=== PATIENT | male | born 1995 | race Caucasian/White ===

== ENCOUNTER 2016-12-08 03:22 | Emergency (ER) | payer OTHER ==
--- NOTE | 2016-12-08 05:10 | ED ORDER SUMMARY ---
..... Patient: KARINA OLIVER OrderSheet [facility] VisitID: [id number] [address] [place] [address] 21y, M Registration Date/Time: 12/08/2016 ORDER SHEET Weight: 65.7 kg (stated) Allergies: No Known Drug Allergy GENERAL ORDERS: Rapid Influenza Screen (Nasal Pharyngeal) (NURSE EXAMINER) Urgent (04:17 12/08/2016 Surya MURPHY) (Ack 4:25 LMuller) MEDICATION ORDERS: IV FLUIDS: ORDER SHEET NOTES: [Electronically signed by Antonia Frey R.N. (05:16 12/08/2016)] [Electronically signed by Jesus Do MD (05:12/08/2016)] [Electronically locked/signed by Antonia Frey R.N. (05:16 12/08/2016)]
--- NOTE | 2016-12-08 05:10 | ED CLINICAL REPORT ---
Clinical Report - Physicians/Mid Levels [facility] [address] [place] [address] 12/08/2016 3:24 Patient: KARINA OLIVER Time Seen: 03:43. Arrived- By private vehicle. Historian- patient. HISTORY OF PRESENT ILLNESS Chief Complaint: COUGH, FEVER and CHILLS. This started last night and is still present. It was abrupt in onset. The patient has had a cough, a sore throat, nasal congestion, chills and a nasal discharge. (he says that he burned the roof of his mouth on some hot food last night and that all of his symptoms started shortly after.). REVIEW OF SYSTEMS The patient has had nasal congestion, a runny nose, a sore throat, a subjective fever and chills. He has had a cough and difficulty breathing and experienced sweats. No calf pain, chest pain, palpitations, abdominal pain or constipation. No diarrhea, nausea, vomiting or urinary problems. All systems otherwise negative, except as recorded above. SOCIAL HISTORY Smoker- current status unknown (vapes). Occasional alcohol use. No drug use. FAMILY HISTORY Denies family medical history. ADDITIONAL NOTES The nursing notes have been reviewed. PHYSICAL EXAM Vital Signs: 12/08/2016 03:27 BP: 131/83. HR: 90. RR: 18. O2 saturation: 100%. Temp: 97.8 F. Have been reviewed. Appearance: Alert. No acute distress. Eyes: Pupils equal, round and reactive to light. ENT: Ears normal. Nose normal. Pharynx normal. Uvula midline. No pharyngeal erythema. Neck: Normal inspection. Neck supple. No meningeal signs. CVS: Normal heart rate and rhythm. Heart sounds normal. Respiratory: No respiratory distress. Breath sounds normal. Abdomen: Soft and nontender. No organomegaly. Back: Normal inspection. Skin: Skin warm and dry. Normal skin color. Normal skin turgor. Extremities: Extremities exhibit normal ROM. No calf tenderness. No lower extremity edema. PROGRESS AND PROCEDURES Course of Care: Patient is stable. Patient/family counseled. Old medical records reviewed. Disposition: Discharged. Condition: stable. CLINICAL IMPRESSION Acute upper respiratory infection. INSTRUCTIONS Drink plenty of fluids. Warnings: Further evaluation is necessary. GENERAL WARNINGS: Return or contact your physician immediately if your condition worsens or changes unexpectedly, if not improving as expected, or if other problems arise. OTC Medications: Acetaminophen (available over the counter): take according to label instructions. Motrin (available over the counter): take according to label instructions. Follow-up: Follow up with your doctor in seven days if not better. Understanding of the discharge instructions verbalized by patient. (Electronically signed by Jesus Do MD 12/08/2016 5:21)
--- NOTE | 2016-12-08 05:10 | ED ORDER SUMMARY ---
..... 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 (05:16 12/08/2016)] [Electronically signed by Jesus Do MD (05:12/08/2016)] [Electronically locked/signed by Antonia Frey R.N. (05:16 12/08/2016)]
--- NOTE | 2016-12-08 05:10 | ED CLINICAL REPORT ---
Clinical Report - Physicians/Mid Levels [facility] [address] [place] [place] [address] 12/08/2016 3:24 Patient: KARINA OLIVER Time Seen: 03:43. Arrived- By private vehicle. Historian- patient. HISTORY OF PRESENT ILLNESS Chief Complaint: COUGH, FEVER and CHILLS. This started last night and is still present. It was abrupt in onset. The patient has had a cough, a sore throat, nasal congestion, chills and a nasal discharge. (he says that he burned the roof of his mouth on some hot food last night and that all of his symptoms started shortly after.). REVIEW OF SYSTEMS The patient has had nasal congestion, a runny nose, a sore throat, a subjective fever and chills. He has had a cough and difficulty breathing and experienced sweats. No calf pain, chest pain, palpitations, abdominal pain or constipation. No diarrhea, nausea, vomiting or urinary problems. All systems otherwise negative, except as recorded above. SOCIAL HISTORY Smoker- current status unknown (vapes). Occasional alcohol use. No drug use. FAMILY HISTORY Denies family medical history. ADDITIONAL NOTES The nursing notes have been reviewed. PHYSICAL EXAM Vital Signs: 12/08/2016 03:27 BP: 131/83. HR: 90. RR: 18. O2 saturation: 100%. Temp: 97.8 F. Have been reviewed. Appearance: Alert. No acute distress. Eyes: Pupils equal, round and reactive to light. ENT: Ears normal. Nose normal. Pharynx normal. Uvula midline. No pharyngeal erythema. Neck: Normal inspection. Neck supple. No meningeal signs. CVS: Normal heart rate and rhythm. Heart sounds normal. Respiratory: No respiratory distress. Breath sounds normal. Abdomen: Soft and nontender. No organomegaly. Back: Normal inspection. Skin: Skin warm and dry. Normal skin color. Normal skin turgor. Extremities: Extremities exhibit normal ROM. No calf tenderness. No lower extremity edema. PROGRESS AND PROCEDURES Course of Care: Patient is stable. Patient/family counseled. Old medical records reviewed. Disposition: Discharged. Condition: stable. CLINICAL IMPRESSION Acute upper respiratory infection. INSTRUCTIONS Drink plenty of fluids. Warnings: Further evaluation is necessary. GENERAL WARNINGS: Return or contact your physician immediately if your condition worsens or changes unexpectedly, if not improving as expected, or if other problems arise. OTC Medications: Acetaminophen (available over the counter): take according to label instructions. Motrin (available over the counter): take according to label instructions. Follow-up: Follow up with your doctor in seven days if not better. Understanding of the discharge instructions verbalized by patient. (Electronically signed by Jesus Do MD 12/08/2016 5:21)
--- NOTE | 2016-12-08 05:10 | ED NURSING NOTES ---
Clinical Report - Nurses [facility] [address] [place] [address] 12/08/2016 3:24 Patient: KARINA OLIVER TRIAGE Triage time 03:27. Acuity: LEVEL 4. Chief Complaint: FEVER, CHILLS, HEADACHE, DYSPNEA and COUGH. Alert. No acute distress. --03:33 Antonia Frey R.N. 03:27 12/08/16. BP: 131/83. HR: 90. RR: 18. O2 saturation: 100% on room air. Temp: 97.8 F (oral). --03:33 Antonia Frey R.N. Weight: 65.7 kg stated. Height/Length: 71 inches Per Patient. BMI: 20.2. --03:29 Antonia Frey R.N. Medications Methylphenidate HCl ER Oral (Tablet Extended Release 36 mg) 1 tablet, daily. --03:31 Antonia Frey R.N. Divalproex Sodium Oral (Tablet Delayed Release 250 mg) 1 tablet, daily. --03:31 Antonia Frey R.N. Allergies No Known Drug Allergy. --03:30 Antonia Frey R.N. History Arrived by private vehicle. Historian: patient. Accompanied by family. Primary physician ([facility]). ( pt states he burnt the roof of his mouth on food today and he thinks that's what started his illness.). 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 PAST MEDICAL HX: Immunizations: up-to-date. SOCIAL HX: Smoker- current status unknown (vapes). Occasional alcohol use. No drug use. NUTRITIONAL RISK ASSESSMENT: The nutritional risk assessment revealed no deficiencies. FUNCTIONAL ASSESSMENT: Functional assessment: no impairments noted. --03:33 Antonia Frey R.N. PROBLEMS: ADHD - Attention Deficit Hyperactivity Disorder. --03:32 Antonia Frey R.N. ADDITIONAL SURGERIES: no known surgeries. Interventions ID band on patient. To treatment room. --03:33 Antonia Frey R.N. PHYSICAL ASSESSMENT Ambulatory to room. GENERAL / NEURO / PSYCH: Alert. Oriented X 4. Appears in no acute distress. HEENT: Mucous membranes are pink. RESPIRATORY: Respirations not labored. CVS: Capillary refill less than 2 seconds. SKIN: Skin is warm and dry. --03:33 Antonia Frey R.N. NURSING PROGRESS NOTES Head of bed elevated. Two patient identifiers checked. Call light placed in reach. Side rails up x 1. Bed placed in lowest position. Brakes of bed on. --03:33 Antonia Frey R.N. Patient ready for evaluation- chart flagged. --03:33 Antonia Frey R.N. 04:20. Patient ID band checked for patient name and birthdate: patient confirmed. Flu swab obtained by RN via nasal pharyngeal swab. Labeled in the presence of the patient and sent to lab. --04:39 Antonia Frey R.N. DISPOSITION / DISCHARGE Condition at departure: stable. No learning barriers present. Discharge instructions provided and reviewed with the patient. Patient verbalized understanding. Written instructions provided in [place]. The patient was discharged home and accompanied by family. He left the Emergency Department ambulatory and via private vehicle. Family member driving. --05:16 Antonia Frey R.N. 05:15 12/08/16. BP: deferred. HR: deferred. RR: 15 (regular and unlabored). O2 saturation: deferred. Temp: deferred. Munoz-Brown pain scale: 4/10. --05:16 Antonia Frey R.N. Locked/Released at 12/08/2016 5:16 by Antonia Frey R.N.
--- NOTE | 2016-12-08 05:10 | ED NURSING NOTES ---
Clinical Report - Nurses [facility] [address] [place] [address] 12/08/2016 3:24 Patient: KARINA OLIVER TRIAGE Triage time 03:27. Acuity: LEVEL 4. Chief Complaint: FEVER, CHILLS, HEADACHE, DYSPNEA and COUGH. Alert. No acute distress. --03:33 Antonia Frey R.N. 03:27 12/08/16. BP: 131/83. HR: 90. RR: 18. O2 saturation: 100% on room air. Temp: 97.8 F (oral). --03:33 Antonia Frey R.N. Weight: 65.7 kg stated. Height/Length: 71 inches Per Patient. BMI: 20.2. --03:29 Antonia Frey R.N. Medications Methylphenidate HCl ER Oral (Tablet Extended Release 36 mg) 1 tablet, daily. --03:31 Antonia Frey R.N. Divalproex Sodium Oral (Tablet Delayed Release 250 mg) 1 tablet, daily. --03:31 Antonia Frey R.N. Allergies No Known Drug Allergy. --03:30 Antonia Frey R.N. History Arrived by private vehicle. Historian: patient. Accompanied by family. Primary physician ([facility]). ( pt states he burnt the roof of his mouth on food today and he thinks that's what started his illness.). 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 PAST MEDICAL HX: Immunizations: up-to-date. SOCIAL HX: Smoker- current status unknown (vapes). Occasional alcohol use. No drug use. NUTRITIONAL RISK ASSESSMENT: The nutritional risk assessment revealed no deficiencies. FUNCTIONAL ASSESSMENT: Functional assessment: no impairments noted. --03:33 Antonia Frey R.N. PROBLEMS: ADHD - Attention Deficit Hyperactivity Disorder. --03:32 Antonia Frey R.N. ADDITIONAL SURGERIES: no known surgeries. Interventions ID band on patient. To treatment room. --03:33 Antonia Frey R.N. PHYSICAL ASSESSMENT Ambulatory to room. GENERAL / NEURO / PSYCH: Alert. Oriented X 4. Appears in no acute distress. HEENT: Mucous membranes are pink. RESPIRATORY: Respirations not labored. CVS: Capillary refill less than 2 seconds. SKIN: Skin is warm and dry. --03:33 Antonia Frey R.N. NURSING PROGRESS NOTES Head of bed elevated. Two patient identifiers checked. Call light placed in reach. Side rails up x 1. Bed placed in lowest position. Brakes of bed on. --03:33 Antonia Frey R.N. Patient ready for evaluation- chart flagged. --03:33 Antonia Frey R.N. 04:20. Patient ID band checked for patient name and birthdate: patient confirmed. Flu swab obtained by RN via nasal pharyngeal swab. Labeled in the presence of the patient and sent to lab. --04:39 Antonia Frey R.N. DISPOSITION / DISCHARGE Condition at departure: stable. No learning barriers present. Discharge instructions provided and reviewed with the patient. Patient verbalized understanding. Written instructions provided in [place]. The patient was discharged home and accompanied by family. He left the Emergency Department ambulatory and via private vehicle. Family member driving. --05:16 Antonia Frey R.N. 05:15 12/08/16. BP: deferred. HR: deferred. RR: 15 (regular and unlabored). O2 saturation: deferred. Temp: deferred. Munoz-Brown pain scale: 4/10. --05:16 Antonia Frey R.N. Locked/Released at 12/08/2016 5:16 by Antonia Frey R.N.
--- NOTE | 2016-12-08 05:21 | ED MAR SUMMARY ---
..... Medication Administration Record [facility] [address], [place] [id number] Patient: KARINA OLIVER Visit ID: [id number] 21y, M Weight: 65.7 kg Height/Length: 71 in BMI: 20.2 ALLERGIES: No Known Drug Allergy
--- NOTE | 2016-12-08 05:21 | ED MED RECONCILIATION SUMMARY ---
Patient: KARINA OLIVER Medication Reconciliation Report [facility] VisitID: [id number] [place] [address] 21y, M Registration Date/Time: 12/08/2016 Weight: 65.7 kg Height/Length: 71 in. BMI: 20.2 ALLERGIES: No Known Drug Allergy The patient's Home Medications are listed below: THE FOLLOWING MEDICATIONS NEED TO BE RECONCILED: Divalproex Sodium Oral (250 mg) 1 tablet, daily Methylphenidate HCl ER Oral (36 mg) 1 tablet, daily The source(s) of the original Home Medication information: Not obtained. The following Medications were given to the patient in the Emergency Department: None. The following Medications were prescribed to the patient: Acetaminophen (available over the counter): take according to label instructions. -- Jesus Do MD Motrin (available over the counter): take according to label instructions. -- Jesus Do MD
--- NOTE | 2016-12-08 05:21 | ED MAR SUMMARY ---
..... Medication Administration Record [facility] [address], [place] [id number] Patient: KARINA OLIVER Visit ID: [id number] 21y, M Weight: 65.7 kg Height/Length: 71 in BMI: 20.2 ALLERGIES: No Known Drug Allergy
--- NOTE | 2016-12-08 05:21 | ED MED RECONCILIATION SUMMARY ---
Patient: KARINA OLIVER Medication Reconciliation Report [facility] VisitID: [id number] [place] [address] 21y, M Registration Date/Time: 12/08/2016 Weight: 65.7 kg Height/Length: 71 in. BMI: 20.2 ALLERGIES: No Known Drug Allergy The patient's Home Medications are listed below: THE FOLLOWING MEDICATIONS NEED TO BE RECONCILED: Divalproex Sodium Oral (250 mg) 1 tablet, daily Methylphenidate HCl ER Oral (36 mg) 1 tablet, daily The source(s) of the original Home Medication information: Not obtained. The following Medications were given to the patient in the Emergency Department: None. The following Medications were prescribed to the patient: Acetaminophen (available over the counter): take according to label instructions. -- Jesus Do MD Motrin (available over the counter): take according to label instructions. -- Jesus Do MD
--- NOTE | 2016-12-08 05:21 | ED DISCHARGE INSTRUCTIONS ---
Patient: KARINA OLIVER General Instructions [facility] VisitID: [id number] [place] [address] 21y, M Registration Date/Time: 12/08/2016 Acute upper respiratory infection. INSTRUCTIONS Drink plenty of fluids. Warnings: Further evaluation is necessary. GENERAL WARNINGS: Return or contact your physician immediately if your condition worsens or changes unexpectedly, if not improving as expected, or if other problems arise. OTC Medications: Acetaminophen (available over the counter): take according to label instructions. Motrin (available over the counter): take according to label instructions. Follow-up: Follow up with your doctor in seven days if not better. Understanding of the discharge instructions verbalized by patient. ADDITIONAL INFORMATION Viral Respiratory Illness [Adult] You have an Upper Respiratory Illness (URI) caused by a virus. This illness is contagious during the first few days. It is spread through the air by coughing and sneezing or by direct contact (touching the sick person and then touching your own eyes, nose or mouth). Most viral illnesses go away within 7-10 days with rest and simple home remedies. Sometimes, the illness may last for several weeks. Antibiotics will not kill a virus and are generally not prescribed for this condition. Home Care: 1) If symptoms are severe, rest at home for the first 2-3 days. When you resume activity, don't let yourself get too tired. 2) Avoid being exposed to cigarette smoke (yours or others). 3) Tylenol (acetaminophen) or ibuprofen (Advil, Motrin) will help fever, muscle aching and headache. (Persons under 18 with fever should not take aspirin since this may cause liver damage.) 4) Your appetite may be poor, so a light diet is fine. Avoid dehydration by drinking 6-8 glasses of fluids per day (water, soft drinks, juices, tea, soup). Extra fluids will help loosen secretions in the nose and lungs. 5) Kpdp-zsj-bvkymag cold medicines will not shorten the length of time youre sick, but they may be helpful for the following symptoms: cough (Robitussin DM); sore throat (Chloraseptic lozenges or spray); nasal and sinus congestion (Actifed, Sudafed, Chlortrimeton). Follow Up with your doctor or as advised if you dont improve over the next week. Get Prompt Medical Attention if any of the following occur: -- Cough with lots of colored sputum (mucus) or blood in your sputum -- Chest pain, shortness of breath, wheezing or have trouble breathing -- Severe headache; face, neck or ear pain -- Fever over 100.4 F (38.0 C) for more than three days -- You cant swallow due to throat pain Acetaminophen Oral tablet What is this medicine? ACETAMINOPHEN (a set a HEIKE meche fen) is a pain reliever. It is used to treat mild pain and fever. How should I use this medicine? Take this medicine by mouth with a glass of water. Follow the directions on the package or prescription label. Take your medicine at regular intervals. Do not take your medicine more often than directed. Talk to your seismograph operator regarding the use of this medicine in children. While this drug may be prescribed for children as young as 6 years of age for selected conditions, precautions do apply. What side effects may I notice from receiving this medicine? Side effects that you should report to your doctor or health personal care home administrator as soon as possible: allergic reactions like skin rash, itching or hives, swelling of the face, lips, or tongue breathing problems fever or sore throat redness, blistering, peeling or loosening of the skin, including inside the mouth trouble passing urine or change in the amount of urine unusual bleeding or bruising unusually weak or tired yellowing of the eyes or skin Side effects that usually do not require medical attention (report to your doctor or health personal care home administrator if they continue or are bothersome): headache nausea, stomach upset What may interact with this medicine? alcohol imatinib isoniazid other medicines with acetaminophen What if I miss a dose? If you miss a dose, take it as soon as you can. If it is almost time for your next dose, take only that dose. Do not take double or extra doses. Where should I keep my medicine? Keep out of reach of children. Store at room temperature between 20 and 25 degrees C (68 and 77 degrees F). Protect from moisture and heat. Throw away any unused medicine after the expiration date. What should I tell my health care provider before I take this medicine? They need to know if you have any of these conditions: if you frequently drink alcohol containing drinks liver disease an unusual or allergic reaction to acetaminophen, other medicines, foods, dyes or preservatives or trying to get breast-feeding What should I watch for while using this medicine? Tell your doctor or health personal care home administrator if the pain lasts more than 10 days (5 days for children), if it gets worse, or if there is a new or different kind of pain. Also, check with your doctor if a fever lasts for more than 3 days. Do not take other medicines that contain acetaminophen with this medicine. Always read labels carefully. If you have questions, ask your doctor or pharmacist. If you take too much acetaminophen get medical help right away. Too much acetaminophen can be very dangerous and cause liver damage. Even if you do not have symptoms, it is important to get help right away. Ibuprofen Oral tablet What is this medicine? IBUPROFEN (eye BYOO proe fen) is a non-steroidal anti-inflammatory drug (NSAID). It is used for dental pain, fever, headaches or migraines, osteoarthritis, rheumatoid arthritis, or painful monthly periods. It can also relieve minor aches and pains caused by a cold, flu, or sore throat. How should I use this medicine? Take this medicine by mouth with a glass of water. Follow the directions on the prescription label. Take this medicine with food if your stomach gets upset. Try to not lie down for at least 10 minutes after you take the medicine. Take your medicine at regular intervals. Do not take your medicine more often than directed. A special MedGuide will be given to you by the pharmacist with each prescription and refill. Be sure to read this information carefully each time. Talk to your seismograph operator regarding the use of this medicine in children. Special care may be needed. What side effects may I notice from receiving this medicine? Side effects that you should report to your doctor or health personal care home administrator as soon as possible: allergic reactions like skin rash, itching or hives, swelling of the face, lips, or tongue black or bloody stools, blood in the urine or in vomit breathing problems changes in vision chest pain general ill feeling or flu-like symptoms nausea or vomiting redness, blistering, peeling or loosening of the skin, including inside the mouth slurred speech or weakness on one side of the body stomach pain unexplained weight gain or swelling unusually weak or tired yellowing of eyes or skin Side effects that usually do not require medical attention (report to your doctor or health personal care home administrator if they continue or are bothersome): constipation or diarrhea dizziness gas or heartburn stomach upset What may interact with this medicine? Do not take this medicine with any of the following medications: cidofovir ketorolac methotrexate pemetrexed This medicine may also interact with the following medications: alcohol aspirin diuretics lithium other drugs for inflammation like prednisone warfarin What if I miss a dose? If you miss a dose, take it as soon as you can. If it is almost time for your next dose, take only that dose. Do not take double or extra doses. Where should I keep my medicine? Keep out of the reach of children. Store at room temperature between 15 and 30 degrees C (59 and 86 degrees F). Keep container tightly closed. Throw away any unused medicine after the expiration date. What should I tell my health care provider before I take this medicine? They need to know if you have any of these conditions: asthma cigarette smoker drink more than 3 alcohol containing drinks a day heart disease or circulation problems such as heart failure or leg edema (fluid retention) high blood pressure kidney disease liver disease stomach bleeding or ulcers an unusual or allergic reaction to ibuprofen, aspirin, other NSAIDS, other medicines, foods, dyes, or preservatives or trying to get breast-feeding What should I watch for while using this medicine? Tell your doctor or healthcare professional if your symptoms do not start to get better or if they get worse. This medicine does not prevent heart attack or stroke. In fact, this medicine may increase the chance of a heart attack or stroke. The chance may increase with longer use of this medicine and in people who have heart disease. If you take aspirin to prevent heart attack or stroke, talk with your doctor or health personal care home administrator. Do not take other medicines that contain aspirin, ibuprofen, or naproxen with this medicine. Side effects such as stomach upset, nausea, or ulcers may be more likely to occur. Many medicines available without a prescription should not be taken with this medicine. This medicine can cause ulcers and bleeding in the stomach and intestines at any time during treatment. Ulcers and bleeding can happen without warning symptoms and can cause . To reduce your risk, do not smoke cigarettes or drink alcohol while you are taking this medicine. You may get drowsy or dizzy. Do not drive, use machinery, or do anything that needs mental alertness until you know how this medicine affects you. Do not stand or sit up quickly, especially if you are an older patient. This reduces the risk of dizzy or fainting spells. This medicine can cause you to bleed more easily. Try to avoid damage to your teeth and gums when you brush or floss your teeth. You have been given the following additional information: Uri, Viral, No Abx (Adult) Acetaminophen Oral tablet Ibuprofen Oral tablet (Electronically signed by Jesus Do MD 12/08/2016 5:21)
== END 2016-12-08 05:16 | disposition home or self-care (01) ==
LOC: ED SRH 03:22
DX: J06.9 Acute upper respiratory infection, unspecified (principal)
CPT/HCPCS: 91400

== ENCOUNTER 2017-02-09 11:16 | Emergency (ER) | payer OTHER ==
--- NOTE | 2017-02-09 16:27 | ED NURSING NOTES ---
Clinical Report - Nurses [facility] [address] [place] [address] 02/09/2017 11:17 Patient: KARINA OLIVER TRIAGE Acuity: LEVEL 2. Chief Complaint: SUICIDAL THOUGHTS and THOUGHTS OF HARMING SELF. Alert. No acute distress. AMEE COMA SCORE: [place] Coma Scale: 15- eyes open spontaneously (4); best verbal response- oriented x 4 (5); best motor response- obeys commands (6). --11:17 Fatmata Sheppard R.N. 11:09 02/09/17. BP: 142/89. HR: 97. RR: 16. O2 saturation: 100%. Temp: 98.2 F (oral). Pain level now: 0/10. --11:17 Fatmata Sheppard R.N. Weight: 65.7 kg stated. Height/Length: 71 inches Per Patient. BMI: 20.2. --11:12 Fatmata Sheppard R.N. Medications QUEtiapine Fumarate Oral 100 mg, at bedtime. --11:38 Fatmata Sheppard R.N. Divalproex Sodium ER Oral 250 mg , 1 tab am, 1 tab 4 pm, 2 tabs at 7pm. --11:40 Fatmata Sheppard R.N. Concerta Oral 36 mg, 2 tabs every morning . --11:42 Fatmata Sheppard R.N. Medication/allergy information source: the patient. --11:17 Fatmata Sheppard R.N. Allergies No Known Drug Allergy. --11:14 Fatmata Sheppard R.N. History Historian: patient. Arrived in police custody and unaccompanied. Primary physician (unknown). Onset: just prior to arrival. ( Pt reports he broke up with his girlfriend 2 months ago and has been depressed since.). The patient has had anxiety and describes feelings of depression. Admits to having rare hallucinations (at night). Treatment UNEMPLOYMENT SPECIALIST: None. PAST MEDICAL HX: Immunizations: status is unknown. SOCIAL HX: Current every day smoker (electronic cigarrettes). Occasional alcohol use. No drug use. SELF HARM ASSESSMENT: A self harm assessment was performed. The patient answered "yes" to the question "Have you recently felt down, depressed, or hopeless?", "Have you noticed less interest or pleasure in doing things?", "Do you have thoughts of harming or killing yourself?" and "Are you here because you tried to hurt yourself?" and "no" to the question "Have you ever tried to hurt yourself before today?", "Have you recently had thoughts about harming or killing others?" and "Do you have any dangerous items in your possession?". The patient reports their behavior. Clothes and valuables were removed and placed in a safe. FALL RISK ASSESSMENT: Fall risk assessment completed. No fall risk identified. NUTRITIONAL RISK ASSESSMENT: The nutritional risk assessment revealed no deficiencies. FUNCTIONAL ASSESSMENT: Functional assessment: no impairments noted. LEARNING NEEDS ASSESSMENT: The learning needs assessment revealed no barriers. SKIN INTEGRITY ASSESSMENT: Skin integrity risk assessment completed. No skin integrity risk identified. --11:17 Fatmata Sheppard R.N. PROBLEMS: Anxiety Reaction. Depression. --11:14 Fatmata Sheppard R.N. Assessment GENERAL / NEURO / PSYCH: Alert. Oriented X 4. Appears in no acute distress. Patient appears calm and cooperative. RESPIRATORY: Respirations not labored. CVS: Capillary refill less than 2 seconds. GI / : Abdomen nontender. SKIN: Mucous membranes are pink. Skin is warm and dry. --11:17 Fatmata Sheppard R.N. Interventions ID band on patient. Suicide precautions initiated. To treatment room. Ambulatory. Patient instructions given: remove extra clothing. --11:17 Fatmata Sheppard R.N. PHYSICAL ASSESSMENT Ambulatory to room. GENERAL / NEURO / PSYCH: Alert. Oriented X 4. Appears in no acute distress. Speech within normal limits. Patient's mood/affect appears flat. Patient appears calm and cooperative. Good eye contact. The patient describes suicidal thoughts and has a specific plan (with access to the planned method). Clothes/valuables were removed and placed in the safe. ED physician was notified. Patient appears well-nourished. RESPIRATORY: Respirations not labored. CVS: Capillary refill less than 2 seconds. GI / : Abdomen soft and nontender. SKIN: Skin intact. Skin is warm and dry. Skin color is within normal limits. --11:20 Fatmata Sheppard R.N. NURSING PROGRESS NOTES 11:20 02/09/17. Patient gowned. Head of bed elevated. Suicide precautions initiated. Clothing / valuables removed and placed in the safe. Two patient identifiers checked. Call light placed in reach. Side rails up x 1. Bed placed in lowest position. Brakes of bed on. Patient ready for evaluation- ED physician notified. --11:20 Ftamata Sheppard R.N. Patient ID band checked for patient name and birthdate: patient confirmed. Blood samples drawn from the left antecubital space with 23g butterfly by tech per protocol ; labeled in presence of the patient and sent to lab: rainbow set and red, green, purple and blue top. --11:34 Brigid Link ER Tech1 ( breathalyzer- .000). --11:48 Brigid Link ER Tech1 11:54 02/09/17. ( Pt moved to room 13 to be more visible to nurse station.). --11:54 Fatmata Sheppard R.N. 11:55 02/09/17. At the patient's bedside (grandmother and [employer] officer). --11:55 Fatmata Sheppard R.N. 11:55 02/09/17. ( Pt given water and lunch tray ordered.). --11:55 Fatmata Sheppard R.N. 13:03 02/09/17. ( Pt again asked for urine sample. Pt states he cannot void. Pt told we will cath him in 10 minutes.). --13:03 Fatmata Sheppard R.N. 13:08 02/09/17. ( Pt ambulated to to provide urine sample.). --13:08 Fatmata Sheppard R.N. 13:14 02/09/17. Checked patient name and birthdate: patient confirmed. Clean catch urine collected with return of yellow-colored clear urine; sample sent to lab for drug screen. Specimen labeled in the presence of the patient. --13:14 Fatmata Sheppard R.N. Suicide precautions initiated: a safety sweep of the room is ongoing. Family at bedside. The patient reports no complaints and he is calm and resting quietly. Call light placed in reach. Side rails up x 1. Bed placed in lowest position. Brakes of bed on. ( grandmother at bedside, pt cooperative with care, requests cracker, po fluids at bedside). --14:53 Winter Carter R.N. 14:51 02/09/17. BP: 124/77. HR: 83. RR: 15. O2 saturation: 100%. Pain level now 0/10. --14:53 Winter Carter R.N. DISPOSITION / DISCHARGE Departure time: 16:30 Feb 09 2017. Condition at departure: improved and stable. No learning barriers present. Discharge instructions provided and reviewed with the patient (grandmother). Patient verbalized understanding. Written instructions provided in Italian. Relative verbalized understanding. The patient was discharged by the physician. He was discharged home and accompanied by family. He left the Emergency Department ambulatory and via private vehicle. Family member driving. --17:33 Fatmata Sheppard R.N. 17:29 02/09/17. BP: 128/71. HR: 75. RR: 14. O2 saturation: 100% on room air. Temp: 98.4 F (oral). Pain level now: 0/10. --17:33 Fatmata Sheppard R.N. Locked/Released at 02/09/2017 17:33 by Fatmata Sheppard R.N.
--- NOTE | 2017-02-09 16:27 | ED ORDER SUMMARY ---
..... Patient: KARINA OLIVER OrderSheet [facility] VisitID: [id number] [place] [address] 21y, M Registration Date/Time: 02/09/2017 ORDER SHEET Weight: 65.7 kg (stated) Allergies: No Known Drug Allergy GENERAL ORDERS: Urine Drug Screen Urgent (11:45 02/09/2017 MWintermiguel a R.N. per protocol) ([facility] 11:47 Clara) (13:12 MWinterer R.N.) MEDICATION ORDERS: IV FLUIDS: ORDER SHEET NOTES: [Electronically signed by Matias Nicole Dr. (16:30 02/09/2017)] [Electronically signed by Fatmata Sheppard R.N. (17:33 02/09/2017)] [Electronically locked/signed by Fatmata Sheppard R.N. (17:33 02/09/2017)]
--- NOTE | 2017-02-09 16:27 | ED ORDER SUMMARY ---
..... Patient: KARINA OLIVER OrderSheet [facility] VisitID: [id number] [place] [address] 21y, M Registration Date/Time: 02/09/2017 ORDER SHEET Weight: 65.7 kg (stated) Allergies: No Known Drug Allergy GENERAL ORDERS: Urine Drug Screen Urgent (11:45 02/09/2017 MWintermiguel a R.N. per protocol) ([facility] 11:47 Clara) (13:12 MWinterer R.N.) MEDICATION ORDERS: IV FLUIDS: ORDER SHEET NOTES: [Electronically signed by Matias Nicole Dr. (16:30 02/09/2017)] [Electronically signed by Fatmata Sheppard R.N. (17:33 02/09/2017)] [Electronically locked/signed by Fatmata Sheppard R.N. (17:33 02/09/2017)]
--- NOTE | 2017-02-09 16:27 | ED CLINICAL REPORT ---
Clinical Report - Physicians/Mid Levels [facility] [address] [place] [address] 02/09/2017 11:17 Patient: KARINA OLIVER Time Seen: 1134; initial patient contact. Arrived- By private vehicle. Historian- patient. HISTORY OF PRESENT ILLNESS Chief Complaint: DEPRESSED and SUICIDAL THOUGHTS. This started about 2 months ago. (Pt stopped taking depression meds and ADHD med and has been having anger and depression issues since.). The patient has experienced situational problems related to significant other. Has not been sleeping. He has had anxiety. Has been depressed and angry and had suicidal thoughts. No self-injury inflicted. He has had mild auditory hallucinations. The symptoms are described as moderate. No injury is present. Similar symptoms previously: None. Recent medical care: Not recently seen/assessed. REVIEW OF SYSTEMS No headache, chest pain, palpitations, abdominal pain or vomiting. No diarrhea. All systems otherwise negative, except as recorded above. PAST HISTORY ( Anxiety Reaction. Depression. ADHD). SOCIAL HISTORY Current every day smoker (electronic cigarrette). Occasional alcohol use. No drug use. ADDITIONAL NOTES The nursing notes have been reviewed. PHYSICAL EXAM Vital Signs: 02/09/2017 11:09 BP: 142/89. HR: 97. RR: 16. O2 saturation: 100%. Temp: 98.2 F. Pain level now: 0/10. Have been reviewed. Hypertensive. Heart rate normal. Respiratory rate normal. Temperature normal. Oxygen saturation normal. Appearance: Alert. No acute distress. Appearance is normal. Eyes: Pupils equal, round and reactive to light. ENT: The mucous membranes are not dry. Neck: Normal inspection. CVS: Normal heart rate and rhythm. Heart sounds normal. Respiratory: No respiratory distress. Breath sounds normal. Skin: Skin warm and dry. Normal skin color. Extremities: Extremities exhibit normal ROM. Psych / Neuro: Oriented X 3. Mood and affect normal. Speech normal. Cognition normal. Thought process and content normal. Insight and judgement normal. LABS, X-RAYS, AND EKG Laboratory Tests: Urine Drug Screen: (JENNIFER: 02/09/2017 13:11) ( MsgRcvd 02/09/2017 13:40) Final results Test Result Flag Units (Reference) AMPHETAMINE/METHAMPHETAMINE NEGATIVE (NEGATIVE) BARBITURATE NEGATIVE (NEGATIVE) BENZODIAZEPINE NEGATIVE (NEGATIVE) CANNABINOID NEGATIVE (NEGATIVE) COCAINE NEGATIVE (NEGATIVE) ECSTASY NEGATIVE (NEGATIVE) METHADONE NEGATIVE (NEGATIVE) OPIATE NEGATIVE (NEGATIVE) The urine drug screen is a qualitative screening test fordrug overdose and abuse. All screen results should beconsidered as presumptive.Drugs screened for are as follows:BenzodiazepinesCocaineAmphetamines/MetamphetaminesTHC (Tetrahydrocannabinol)OpiatesBarbituratesEcstasyMethadonePositive results are unconfirmed. For confirmation, notifythe lab for the specimen to be sent to the reference lab.All confirmations must be performed by a differentmethodology.The ingestion of natural herbal and plant productscontaining Ephedra/Ephedra metabolites can produce in urineone or more substances capable of cross reacting withamphetamine/methamphetamine immunoassays. These testsprovide a preliminary result only. A more specificalternative chemical method must be used to obtain aconfirmed analytical result. . PROGRESS AND PROCEDURES Course of Care: 16:27 02/09/17. Cleared by PAT team. Pt agreed to a safety contract and has an appointment with his counselor tomorrow. Disposition: Discharged home in good condition. Condition: good. 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 INSTRUCTIONS Your Current Medications: CONTINUE TAKING THE FOLLOWING MEDICATIONS: Concerta Oral : 36 mg 2 tabs every morning. Divalproex Sodium ER Oral : 250 mg 1 tab am, 1 tab 4 pm, 2 tabs at 7pm. QUEtiapine Fumarate Oral : 100 mg at bedtime. Follow-up: Follow up with your doctor tomorrow as scheduled. Screening today revealed the patient's blood pressure to be in the pre-hypertensive range. The patient should follow up with a primary care provider for blood pressure management. (Electronically signed by Matias Nicole Dr. 02/09/2017 16:30)
--- NOTE | 2017-02-09 17:33 | ED MED RECONCILIATION SUMMARY ---
Patient: KARINA OLIVER Medication Reconciliation Report [facility] VisitID: [id number] [place] [address] 21y, M Registration Date/Time: 02/09/2017 Weight: 65.7 kg Height/Length: 71 in. BMI: 20.2 ALLERGIES: No Known Drug Allergy The patient's Home Medications are listed below: CONTINUE TAKING THE FOLLOWING MEDICATIONS: Concerta Oral 36 mg, 2 tabs every morning Divalproex Sodium ER Oral 250 mg , 1 tab am, 1 tab 4 pm, 2 tabs at 7pm QUEtiapine Fumarate Oral 100 mg, at bedtime The source(s) of the original Home Medication information: patient The following Medications were given to the patient in the Emergency Department: None. The following Medications were prescribed to the patient: None.
--- NOTE | 2017-02-09 17:33 | ED DISCHARGE INSTRUCTIONS ---
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 INSTRUCTIONS Your Current Medications: CONTINUE TAKING THE FOLLOWING MEDICATIONS: Concerta Oral : 36 mg 2 tabs every morning. Divalproex Sodium ER Oral : 250 mg 1 tab am, 1 tab 4 pm, 2 tabs at 7pm. QUEtiapine Fumarate Oral : 100 mg at bedtime. Follow-up: Follow up with your doctor tomorrow as scheduled. Screening today revealed the patient's blood pressure to be in the pre-hypertensive range. The patient should follow up with a primary care provider for blood pressure management. ADDITIONAL INFORMATION Depression Depression is one of the most common mental health problems today. It is not just a state of unhappiness or sadness. It is a true disease. The cause seems to be related to a decrease in chemicals that transmit signals in the brain. Having a family history of depression, alcoholism or suicide increases the risk. Chronic illness, chronic pain, migraine headaches and high emotional stress also increase the risk. Depression can cause many different symptoms, such as: -- Loss of appetite -- Over-eating -- Not being able to sleep -- Sleeping too much -- Tiredness not related to physical exertion -- Restlessness or irritability -- Slowness of movement or speech -- Feeling depressed or withdrawn -- Loss of interest in things you once enjoyed -- Difficulty in concentrating, poor memory, have trouble making decisions -- Thoughts of harming or killing oneself, or thoughts that life is not worth living -- Low self-esteem The best treatment for depression is a combination of medicine and psychotherapy. Antidepressant medicines can reduce suffering and can improve the ability to function during the depressed period. Therapy can offer emotional support and help you understand emotional factors that may be causing the depression. Home Care: 1) Be kind to yourself. Make it a point to do things that you enjoy (gardening, walking in nature, going to a movie, etc.). Reward yourself for small successes. 2) Take care of your physical body. Eat a balanced diet (low in saturated fat and high in fruits and vegetables). Establish an exercise plan at least 3 times a week for 30 minutes. Even mild-moderate exercise (like brisk walking) can make you feel better. 3) Avoid alcohol, which can make depression worse. Follow-Up with your doctor as advised. It is important to keep in contact with a health care provider until your symptoms begin to improve. Get Prompt Medical Attention if any of the following occur: -- Feeling extreme depression, fear, anxiety, or anger toward yourself or others -- Feeling out of control -- Feeling that you may try to harm yourself or another -- Hearing voices that others do not hear -- Seeing things that others do not see -- Cant sleep or eat for 3 days in a row You have been given the following additional information: Depression (Electronically signed by Matias Nicole Dr. 02/09/2017 16:30)
--- NOTE | 2017-02-09 17:33 | ED MED RECONCILIATION SUMMARY ---
Patient: KARINA OLIVER Medication Reconciliation Report [facility] VisitID: [id number] [place] [address] 21y, M Registration Date/Time: 02/09/2017 Weight: 65.7 kg Height/Length: 71 in. BMI: 20.2 ALLERGIES: No Known Drug Allergy The patient's Home Medications are listed below: CONTINUE TAKING THE FOLLOWING MEDICATIONS: Concerta Oral 36 mg, 2 tabs every morning Divalproex Sodium ER Oral 250 mg , 1 tab am, 1 tab 4 pm, 2 tabs at 7pm QUEtiapine Fumarate Oral 100 mg, at bedtime The source(s) of the original Home Medication information: patient The following Medications were given to the patient in the Emergency Department: None. The following Medications were prescribed to the patient: None.
--- NOTE | 2017-02-09 17:33 | ED MAR SUMMARY ---
..... Medication Administration Record [facility] [address] [place], [place] [id number] Patient: KARINA OLIVER Visit ID: [id number] 21y, M Weight: 65.7 kg Height/Length: 71 in BMI: 20.2 ALLERGIES: No Known Drug Allergy
--- NOTE | 2017-02-09 17:33 | ED MAR SUMMARY ---
..... Medication Administration Record [facility] [address] [place], [place] [id number] Patient: KARINA OLIVER Visit ID: [id number] 21y, M Weight: 65.7 kg Height/Length: 71 in BMI: 20.2 ALLERGIES: No Known Drug Allergy
== END 2017-02-09 16:30 | disposition home or self-care (01) ==
LOC: ED SRH 11:16
DX: F33.1 Major depressive disorder, recurrent, moderate (principal); R45.851 Suicidal ideations; F17.200 Nicotine dependence, unspecified, uncomplicated
CPT/HCPCS: 92760; 92761; 92762; 92763; 92764; 92765; 92766; 92767